=== PATIENT | female | born 1980 | race Two or more races ===

== ENCOUNTER 2017-03-19 11:05 | Emergency (ER) | payer MEDICAID ==
[~2017-03-19] VITALS: Ht 147.3 cm; Wt 83.9 kg
[2017-03-19 11:09] VITALS: BP 151/89
[2017-03-19 11:54] LABS: Basophils # (auto) 0 uL; Eosinophils # (auto) 0.2 uL; Mean Corpuscular Hemoglobin 26.5 pg (28.0-32.0); Mean Corpuscular Hgb Conc. 32.8 g/dL (32.0-36.0); Monocytes # (auto) 0.3 uL; White Blood Cell 8.3 10^3/uL (4.4-10.8)
[2017-03-19 11:55] LABS: Basophils % (auto) 0.5 % (0.0-2.0); Eosinophils % (auto) 2.6 % (0.0-7.0); Hematocrit 39.8 % (36.0-46.0); Hemoglobin 13.1 g/dL (12.2-16.2); Lymphocytes % (auto) 23.6 % (10.0-50.0); Monocytes % (auto) 3.9 % (0.0-12.0); Neutrophils # (auto) 5.8 uL; Neutrophils % (auto) 69.4 % (37.0-80.0); Platelet Count (auto) 308 10^3/uL (140-450); Red Blood Cells 4.92 10^6/uL (4.0-5.20); Red Cell Distribution Width 15.3 % (11.8-14.3)
[2017-03-19 12:10] LABS: Urine Bacteria FEW /hpf (None Seen); Urine Blood 1+ /uL (Negative); Urine Specific Gravity 1.023 (1.001-1.035); Urine WBC 1 /hpf (0 - 5)
[2017-03-19 12:18] LABS: Albumin 4.4 g/dL (3.4-5.0); BUN/Creatinine Ratio 16.4; Bilirubin, Total 1.4 mg/dL (0.2-1.0); Calcium 9.2 mg/dL (8.5-10.1); Potassium 4.1 mmol/L (3.5-5.1); Total Protein 8.3 g/dL (6.4-8.2)
== END 2017-03-20 01:30 | disposition left against medical advice (07) ==
LOC: ER 11:05
DX: R16.0 Hepatomegaly, not elsewhere classified (principal); D36.7 Benign neoplasm of other specified sites; R11.0 Nausea
CPT/HCPCS: 36415; 74176; 80053; 81001; 81025; 82150; 83690; 85025

== ENCOUNTER → 2019-08-13 | Emergency (ER) | payer MEDICAID ==
[~2019-08-13] VITALS: Ht 149.9 cm; Wt 81.6 kg
[~2019-08-13] MED LIST: ALUM & MAG HYDROX-SIMETH LIQ(MAALOX) 30 ML PO ONE; LIDOCAINE VISCOUS 2% 15ML UD PO ONE
[2019-08-13 20:08] VITALS: BP 152/101
[2019-08-13 20:37] LABS: Urine Bacteria NONE SEEN /hpf (None Seen); Urine Blood 3+ /uL (Negative); Urine Mucus FEW (None Seen); Urine Specific Gravity 1.026 (1.001-1.035); Urine WBC <1 /hpf (0 - 5)
[2019-08-13 22:20] LABS: Basophils % (auto) 0.7 % (0.0-2.0); Eosinophils # (auto) 0.2 10 ^3/uL (0-0.8); Eosinophils % (auto) 2.7 % (0.0-7.0); Lymphocytes # (auto) 2.4 10 ^3/uL (0.4-5.4); White Blood Cell 7.4 10^3/uL (4.4-10.8)
[2019-08-13 22:22] LABS: Basophils # (auto) 0.1 10 ^3/uL (0-0.2); Hematocrit 32.8 % (36.0-46.0); Lymphocytes % (auto) 31.8 % (10.0-50.0); Mean Corpuscular Hemoglobin 20.3 pg (28.0-32.0); Mean Corpuscular Hgb Conc. 30.5 g/dL (32.0-36.0); Mean Corpuscular Volume 66.4 fL (80.0-100.0); Monocytes # (auto) 0.3 10 ^3/uL (0-1.3); Monocytes % (auto) 4.6 % (0.0-12.0); Neutrophils # (auto) 4.5 10 ^3/uL (1.6-8.6); Neutrophils % (auto) 60.2 % (37.0-80.0); Platelet Count (auto) 374 10^3/uL (140-450); Red Blood Cells 4.93 10^6/uL (4.0-5.20); Red Cell Distribution Width 18.8 % (11.8-14.3)
[2019-08-13 22:38] LABS: Albumin 3.8 g/dL (3.4-5.0); Amylase 53 U/L (25-115); Anion Gap 8 (5-15); Blood Urea Nitrogen 7 mg/dL (7-18); Calcium 8.6 mg/dL (8.5-10.1); Carbon Dioxide 26 mmol/L (21-32); Chloride 102 mmol/L (98-107); Glucose 233 mg/dL (74-106); Lipase 260 U/L (73-393); Potassium 4.1 mmol/L (3.5-5.1); Sodium 136 mmol/L (136-145)
[2019-08-13 22:45] LABS: Alanine Aminotransferase 36 U/L (13-56); Alkaline Phosphatase 131 U/L (45-117); Aspartate Aminotransferase 25 U/L (15-37); BUN/Creatinine Ratio 10.1; Bilirubin, Total 0.7 mg/dL (0.2-1.0); GFR African American 121 mL/min; GFR Non-African American 100 mL/min; Total Protein 7.9 g/dL (6.4-8.2)
== END | disposition home or self-care (01) ==
LOC: ER 19:24
DX: K29.70 Gastritis, unspecified, without bleeding (principal); D64.9 Anemia, unspecified; E11.65 Type 2 diabetes mellitus with hyperglycemia; R03.0 Elevated blood-pressure reading, without diagnosis of hypertension
CPT/HCPCS: 36415; 80053; 81001; 82150; 83036; 83690; 84484; 85025

== ENCOUNTER 2020-05-26 07:28 | Emergency (ER) | payer MEDICAID ==
[~2020-05-26] VITALS: Ht 147.3 cm; Wt 81.6 kg
[2020-05-26 07:54] LABS: Hemoglobin 7.9 g/dL (12.2-16.2); White Blood Cell 6.3 10^3/uL (4.4-10.8)
[2020-05-26] MEDS ORDERED: SODIUM CHLORIDE 0.9% 1,000 ML IV ONE (08:00)
[2020-05-26 08:01] LABS: Urine WBC None Seen /hpf (0 - 5)
[2020-05-26 08:11] LABS: Hematocrit 26.8 % (36.0-46.0); Mean Corpuscular Hemoglobin 18.1 pg (28.0-32.0); Mean Corpuscular Hgb Conc. 29.5 g/dL (32.0-36.0); Mean Corpuscular Volume 61.3 fL (80.0-100.0); Platelet Count (auto) 417 10^3/uL (140-450); Red Blood Cells 4.37 10^6/uL (4.0-5.20); Red Cell Distribution Width 19.6 % (11.8-14.3)
[2020-05-26 08:15] LABS: Band Neutrophils % (manual) 0; Basophils % (manual) 0 (0.0-2.0); Blast Cells 0; Lipase 152 U/L (73-393); Metamyelocytes % 0; Myelocytes % 0; Promyelocytes % 0; Reactive Lymphocytes 0
[2020-05-26] MEDS ORDERED: ONDANSETRON HCL 4 MG/2 ML VIAL IV ONE (08:15)
[2020-05-26] MEDS ORDERED: MORPHINE SULFATE 4 MG/ML SYR/VIAL IV ONE (08:15)
[2020-05-26 08:16] LABS: Albumin 4.2 g/dL (3.4-5.0); Calcium 8.4 mg/dL (8.5-10.1); Potassium 4.3 mmol/L (3.5-5.1)
[2020-05-26 08:18] LABS: Urine Bacteria FEW /hpf (None Seen); Urine Blood Negative /uL (Negative); Urine Mucus MODERATE (None Seen); Urine Specific Gravity 1.021 (1.001-1.035)
[2020-05-26 08:19] LABS: BUN/Creatinine Ratio 18.5; Bilirubin, Total 1.1 mg/dL (0.2-1.0); Total Protein 7.7 g/dL (6.4-8.2)
[2020-05-26 08:38] LABS: Eosinophils % (manual) 2 (0-7); Lymphocytes % (manual) 28 (10.0-50.0); Monocytes % (manual) 5 (0-12)
[2020-05-26 10:51] VITALS: BP 152/106
== END 2020-05-26 11:14 | disposition home or self-care (01) ==
LOC: ER 07:28
DX: D64.9 Anemia, unspecified (principal); E11.65 Type 2 diabetes mellitus with hyperglycemia; Z20.822 Contact with and (suspected) exposure to COVID-19
CPT/HCPCS: 36415; 71045; 74176; 80053; 81001; 83690; 84484; 85007; 85027; 87426; 96361; 96374; 96375; 99285; J2270; J2405; J7030

== ENCOUNTER 2020-05-29 17:59 | Inpatient (IN) | payer MEDICAID ==
[~2020-05-29] VITALS: Ht 147.3 cm; Wt 77.8 kg
[2020-05-29 18:25] LABS: Eosinophils # (auto) 0.2 10 ^3/uL (0-0.8); Mean Corpuscular Hemoglobin 18.1 pg (28.0-32.0); Monocytes # (auto) 0.5 10 ^3/uL (0-1.3); Nucleated Red Blood Cells % 0.1 %
[2020-05-29 18:28] LABS: Basophils # (auto) 0.1 10 ^3/uL (0-0.2); Basophils % (auto) 1.1 % (0.0-2.0); Eosinophils % (auto) 2.7 % (0.0-7.0); Hematocrit 27.7 % (36.0-46.0); Hemoglobin 8.2 g/dL (12.2-16.2); Lymphocytes % (auto) 27.5 % (10.0-50.0); Mean Corpuscular Hgb Conc. 29.8 g/dL (32.0-36.0); Mean Corpuscular Volume 60.7 fL (80.0-100.0); Monocytes % (auto) 7.4 % (0.0-12.0); Neutrophils # (auto) 4.4 10 ^3/uL (1.6-8.6); Neutrophils % (auto) 61.3 % (37.0-80.0); Platelet Count (auto) 398 10^3/uL (140-450); Red Blood Cells 4.56 10^6/uL (4.0-5.20); Red Cell Distribution Width 19.6 % (11.8-14.3); White Blood Cell 7.2 10^3/uL (4.4-10.8)
[2020-05-29 18:48] LABS: Albumin 4.4 g/dL (3.4-5.0); BUN/Creatinine Ratio 14.3; Calcium 8.9 mg/dL (8.5-10.1); Magnesium 2.1 mg/dL (1.6-2.6); Potassium 3.7 mmol/L (3.5-5.1)
[2020-05-29 18:51] LABS: Total Protein 7.9 g/dL (6.4-8.2)
[2020-05-29] MEDS ORDERED: ONDANSETRON HCL 4 MG/2 ML VIAL IV ONE (21:00)
[2020-05-29] MEDS ORDERED: MORPHINE SULF INJ 2 MG/ML SYRINGE 1ML IV ONE (21:00)
[2020-05-29] MEDS ORDERED: SODIUM CHLORIDE 0.9% 1,000 ML IV ONE (21:00)
[2020-05-29] MEDS ORDERED: METOCLOPRAMIDE HCL 5MG/ml INJ 2ml VIAL IV PRN (22:00)
[2020-05-29] MEDS ORDERED: NITROGLYCERIN 0.4 MG SL TAB SL PRN (22:00)
[2020-05-29] MEDS: SOD CHL 0.45% 1,000 ML IV SCH (22:00)
[2020-05-29] MEDS ORDERED: DEXTROSE (50%) 50ML SYRG IV PRN (22:00)
[2020-05-29] MEDS ORDERED: HYDROcodone-ACET 5/325MG TAB PO PRN (22:00)
[2020-05-29] MEDS ORDERED: MORPHINE SULF INJ 2 MG/ML SYRINGE 1ML IV PRN (22:00)
[2020-05-29] MEDS ORDERED: ACETAMINOPHEN 325 MG TAB PO PRN (22:00)
[2020-05-29] MEDS: InsuLIN REG 1unit/0.01ml Soln (100units/ml) SC SCH (22:00)
[2020-05-29] MEDS ORDERED: MORPHINE SULFATE 4 MG/ML SYR/VIAL IV PRN (22:00)
[2020-05-29] MEDS ORDERED: ONDANSETRON HCL 4 MG/2 ML VIAL IV PRN (22:00)
[2020-05-29] MEDS ORDERED: hydrALAZINE HCL 20 MG/ML VL IV PRN (22:15)
[2020-05-29] MEDS: ACCU-CHEK COMFORT CURVE STRIP VI SCH (23:29)
[2020-05-30] MEDS ORDERED: diphenhdrAMINE HCL 50 MG/1 ML VL IV ONE (03:15)
[2020-05-30] MEDS: ACCU-CHEK COMFORT CURVE STRIP VI SCH ×4 (06:34→22:03)
[2020-05-30] MEDS: InsuLIN REG 1unit/0.01ml Soln (100units/ml) SC SCH ×4 (06:36→22:00)
[2020-05-30 07:22] LABS: Eosinophils # (auto) 0.2 10 ^3/uL (0-0.8); Lymphocytes # (auto) 2.4 10 ^3/uL (0.4-5.4); Monocytes # (auto) 0.4 10 ^3/uL (0-1.3); Neutrophils # (auto) 3.1 10 ^3/uL (1.6-8.6); White Blood Cell 6.1 10^3/uL (4.4-10.8)
[2020-05-30 07:24] LABS: Basophils # (auto) 0.1 10 ^3/uL (0-0.2); Basophils % (auto) 0.8 % (0.0-2.0); Eosinophils % (auto) 2.6 % (0.0-7.0); Hematocrit 26.5 % (36.0-46.0); Hemoglobin 7.8 g/dL (12.2-16.2); Lymphocytes % (auto) 39.7 % (10.0-50.0); Mean Corpuscular Hemoglobin 17.7 pg (28.0-32.0); Mean Corpuscular Hgb Conc. 29.3 g/dL (32.0-36.0); Mean Corpuscular Volume 60.6 fL (80.0-100.0); Monocytes % (auto) 6.6 % (0.0-12.0); Neutrophils % (auto) 50.3 % (37.0-80.0); Nucleated Red Blood Cells % 0.2 %; Platelet Count (auto) 364 10^3/uL (140-450); Red Blood Cells 4.37 10^6/uL (4.0-5.20); Red Cell Distribution Width 19.2 % (11.8-14.3)
[2020-05-30 07:41] LABS: Albumin 3.9 g/dL (3.4-5.0); BUN/Creatinine Ratio 16.4; Calcium 8.5 mg/dL (8.5-10.1); Potassium 4.1 mmol/L (3.5-5.1)
[2020-05-30 07:43] LABS: Bilirubin, Total 0.9 mg/dL (0.2-1.0); Total Protein 7.3 g/dL (6.4-8.2)
[2020-05-30 07:44] LABS: % Iron Saturation 2.4 % (15-50)
[2020-05-30] MEDS: PANTOPRAZOLE 40 MG/10 ML VIAL INJ IV SCH (10:04)
[2020-05-30] MEDS: SOD CHL 0.45% 1,000 ML IV SCH (11:21)
[2020-05-30 11:33] LABS: Folate (Folic Acid) 19.89 ng/mL (5.38-24)
[2020-05-30 16:48] VITALS: BP 153/105
[2020-05-30] MEDS ORDERED: SOD CHL 0.45% 1,000 ML IV SCH (17:00)
[2020-05-30] MEDS: D5W/SOD CHLO 0.9% 1,000 ML IV SCH (19:30)
[2020-05-30 21:35] LABS: INR 1.77 (0.9-1.15); Partial Thromboplastin Time 33.7 sec (23.0-31.2)
[2020-05-30 22:00] VITALS: BP 138/94
[2020-05-30 23:46] LABS: Urine WBC None Seen /hpf (0 - 5)
[2020-05-30 23:54] LABS: Urine Bacteria FEW /hpf (None Seen); Urine Blood Negative /uL (Negative); Urine Mucus FEW (None Seen); Urine Specific Gravity 1.014 (1.001-1.035)
[2020-05-31] MEDS: diphenhdrAMINE HCL 50 MG/1 ML VL IV PRN (00:59)
[2020-05-31] MEDS: D5W/SOD CHLO 0.9% 1,000 ML IV SCH ×3 (03:30→23:23)
[2020-05-31 05:00] VITALS: BP 139/99
[2020-05-31 05:41] LABS: Eosinophils # (auto) 0.2 10 ^3/uL (0-0.8); Monocytes # (auto) 0.4 10 ^3/uL (0-1.3); Neutrophils # (auto) 3.3 10 ^3/uL (1.6-8.6)
[2020-05-31 05:45] LABS: Basophils # (auto) 0.1 10 ^3/uL (0-0.2); Eosinophils % (auto) 3.2 % (0.0-7.0); Hemoglobin 8.1 g/dL (12.2-16.2); Lymphocytes # (auto) 1.8 10 ^3/uL (0.4-5.4); Lymphocytes % (auto) 31.3 % (10.0-50.0); Mean Corpuscular Hemoglobin 18.1 pg (28.0-32.0); Mean Corpuscular Hgb Conc. 30.1 g/dL (32.0-36.0); Mean Corpuscular Volume 60.1 fL (80.0-100.0); Monocytes % (auto) 6.5 % (0.0-12.0); Nucleated Red Blood Cells % 0.2 %; Platelet Count (auto) 365 10^3/uL (140-450); Red Cell Distribution Width 19.5 % (11.8-14.3); White Blood Cell 5.7 10^3/uL (4.4-10.8)
[2020-05-31 06:05] LABS: Potassium 4.6 mmol/L (3.5-5.1)
[2020-05-31 06:14] LABS: BUN/Creatinine Ratio 15.5; Calcium 8.7 mg/dL (8.5-10.1); Magnesium 2.2 mg/dL (1.6-2.6)
[2020-05-31] MEDS: InsuLIN REG 1unit/0.01ml Soln (100units/ml) SC SCH ×4 (06:14→21:15)
[2020-05-31] MEDS: ACCU-CHEK COMFORT CURVE STRIP VI SCH ×4 (06:14→21:15)
[2020-05-31 08:00] VITALS: BP 147/90
[2020-05-31 08:30] VITALS: BP 147/90
[2020-05-31] MEDS: PANTOPRAZOLE 40 MG/10 ML VIAL INJ IV SCH (09:39)
[2020-05-31 11:30] LABS: INR 1.08 (0.9-1.15); Partial Thromboplastin Time 23.4 sec (23.0-31.2)
[2020-05-31 12:30] VITALS: BP 137/96
[2020-05-31] MEDS ORDERED: IRON SUCROSE COMPLEX 200 MG in SODIUM CHL 0.9% 100 ML IV SCH (13:15)
[2020-05-31 16:42] VITALS: BP 141/92
[2020-05-31] MEDS: SODIUM FERR GLUC 62.5MG/5ML 125 MG in SODIUM CHL 0.9% 100 ML IV SCH (17:00)
[2020-06-01] MEDS ORDERED: SODIUM CHLORIDE 0.9% 500 ML IV ONE (02:00)
[2020-06-01 05:13] VITALS: BP 139/90
[2020-06-01] MEDS: InsuLIN REG 1unit/0.01ml Soln (100units/ml) SC SCH ×4 (05:40→22:25)
[2020-06-01] MEDS: ACCU-CHEK COMFORT CURVE STRIP VI SCH ×4 (05:40→22:05)
[2020-06-01] MEDS ORDERED: ceFAZolin 1GM/50ML 50 ML IV ONE (07:45)
[2020-06-01 08:00] VITALS: BP 150/89
[2020-06-01] MEDS ORDERED: BUPIVACAINE 0.25% INJ 50ML VIAL ONE (08:23)
[2020-06-01] MEDS ORDERED: POVIDONE IODINE 10 % TOPICAL OINT 30GM TOP ONE (08:23)
[2020-06-01] MEDS ORDERED: MIDAZOLAM HCL 1MG/1ML-2 ML VIAL ONE (08:29)
[2020-06-01] MEDS ORDERED: ROCURONIUM 10MG/ML 10ML VIAL IV ONE (08:29)
[2020-06-01] MEDS ORDERED: HYDROmorphone HCL 2 MG/ML VL ONE (08:29)
[2020-06-01] MEDS ORDERED: METOCLOPRAMIDE HCL 5MG/ml INJ 2ml VIAL IV ONE (08:31)
[2020-06-01] MEDS ORDERED: PROPOFOL 10 MG/ML 20 ML IV ONE (08:31)
[2020-06-01] MEDS ORDERED: DexAMETHasone SOD PHOS 10MG/1ML VIAL INJ ONE (08:56)
[2020-06-01] MEDS ORDERED: NEOSTIGMINE 1 MG/ML INJ (10mg/10ML VIAL) ONE (08:56)
[2020-06-01] MEDS ORDERED: ONDANSETRON HCL 4 MG/2 ML VIAL ONE (08:56)
[2020-06-01] MEDS ORDERED: GLYCOPYRROLATE 0.2 MG/ML 1ML VIAL ONE (08:56)
[2020-06-01 09:00] VITALS: BP 150/89
[2020-06-01] MEDS: D5W/SOD CHLO 0.9% 1,000 ML IV SCH ×2 (09:30→19:24)
[2020-06-01] MEDS ORDERED: HYDROmorphone HCL 2 MG/ML VL IV PRN ×3 (10:00→10:15)
[2020-06-01] MEDS ORDERED: ONDANSETRON HCL 4 MG/2 ML VIAL IV PRN (10:15)
[2020-06-01] MEDS: D5W/SOD CHL 0.45%/KCL 20MEQ 1,000 ML IV SCH (12:20)
[2020-06-01] MEDS: PANTOPRAZOLE 40 MG/10 ML VIAL INJ IV SCH (12:25)
[2020-06-01] MEDS: SODIUM FERR GLUC 62.5MG/5ML 125 MG in SODIUM CHL 0.9% 100 ML IV SCH (12:36)
[2020-06-01 13:00] VITALS: BP 122/84
[2020-06-01 13:48] LABS: Hematocrit 27.5 % (36.0-46.0); Hemoglobin 8.1 g/dL (12.2-16.2); Mean Corpuscular Hemoglobin 17.7 pg (28.0-32.0); Mean Corpuscular Hgb Conc. 29.3 g/dL (32.0-36.0); Mean Corpuscular Volume 60.4 fL (80.0-100.0); Platelet Count (auto) 330 10^3/uL (140-450); Red Blood Cells 4.55 10^6/uL (4.0-5.20); Red Cell Distribution Width 19.2 % (11.8-14.3); White Blood Cell 9.1 10^3/uL (4.4-10.8)
[2020-06-01 13:52] LABS: Basophils % (manual) 0 (0.0-2.0); Blast Cells 0; Eosinophils % (manual) 0 (0-7); Metamyelocytes % 0; Monocytes % (manual) 0 (0-12); Myelocytes % 0; Promyelocytes % 0; Reactive Lymphocytes 0
[2020-06-01 14:11] LABS: Band Neutrophils % (manual) 1; Lymphocytes % (manual) 5 (10.0-50.0)
[2020-06-01 16:40] VITALS: BP 142/90
[2020-06-01] MEDS: diphenhdrAMINE HCL 50 MG/1 ML VL IV PRN (21:14)
[2020-06-01 22:00] VITALS: BP 143/89
[2020-06-02] MEDS: D5W/SOD CHL 0.45%/KCL 20MEQ 1,000 ML IV SCH ×2 (01:51→05:27)
[2020-06-02 05:00] VITALS: BP 139/93
[2020-06-02] MEDS: D5W/SOD CHLO 0.9% 1,000 ML IV SCH (05:26)
[2020-06-02] MEDS: InsuLIN REG 1unit/0.01ml Soln (100units/ml) SC SCH ×2 (06:01→11:32)
[2020-06-02] MEDS: ACCU-CHEK COMFORT CURVE STRIP VI SCH ×2 (06:01→11:30)
[2020-06-02] MEDS ORDERED: cefTRIAXone 1GM/50ML D5W 50 ML IV SCH (09:00)
[2020-06-02 09:06] VITALS: BP 149/103
[2020-06-02] MEDS: PANTOPRAZOLE 40 MG/10 ML VIAL INJ IV SCH (11:26)
[2020-06-02] MEDS: SODIUM FERR GLUC 62.5MG/5ML 125 MG in SODIUM CHL 0.9% 100 ML IV SCH (12:35)
[2020-06-02 13:00] VITALS: BP 150/95
== END 2020-06-02 15:09 | disposition home or self-care (01) | DRG 263 ==
LOC: ER 17:59 → TELE 21:47 → TELE-WESTW 05-30 13:23
PROVIDERS: ADMIT Nurse Practitioner Family; ATTEND Internal Medicine
PROC: 0FT44ZZ Resection of Gallbladder, Percutaneous Endoscopic Approach (ICD-10-PCS; principal; 2020-06-01 08:31)
DX: K80.12 Calculus of gallbladder with acute and chronic cholecystitis without obstruction (principal); E11.65 Type 2 diabetes mellitus with hyperglycemia; E66.01 Morbid (severe) obesity due to excess calories; I10 Essential (primary) hypertension; D50.9 Iron deficiency anemia, unspecified; R00.0 Tachycardia, unspecified; Z20.822 Contact with and (suspected) exposure to COVID-19; Z68.35 Body mass index [BMI] 35.0-35.9, adult; Z82.49 Family history of ischemic heart disease and other diseases of the circulatory system; Z83.3 Family history of diabetes mellitus; Z98.51 Tubal ligation status
CPT/HCPCS: 36415; 76705; 78226; 80048; 80053; 81001; 81025; 82150; 82247; 82607; 82746; 82962; 83540; 83550; 83690; 83735; 85007; 85025; 85027; 85610; 85730; 86850; 86900; 86901; 87426; 96361; 96374; 96375; C9113; G0378; J0690; J0696; J1100; J1815; J2250; J2405; J2704; J3490; J7042

== ENCOUNTER 2020-08-01 17:34 | Inpatient (IN) | payer MEDICAID ==
[~2020-08-01] VITALS: Ht 147.3 cm; Wt 77.1 kg
[2020-08-01 18:05] LABS: Urine Bacteria NONE SEEN /hpf (None Seen); Urine Blood Negative /uL (Negative); Urine Hyaline Cast FEW /lpf (0 - 2); Urine Specific Gravity 1.019 (1.001-1.035); Urine WBC 2 /hpf (0 - 5)
[2020-08-01 18:20] LABS: Basophils # (auto) 0 10 ^3/uL (0-0.2); Eosinophils # (auto) 0.1 10 ^3/uL (0-0.8); Lymphocytes # (auto) 2.2 10 ^3/uL (0.4-5.4); Mean Corpuscular Hemoglobin 19.7 pg (28.0-32.0); Nucleated Red Blood Cells % 0.3 %
[2020-08-01 18:21] LABS: Basophils % (auto) 0.7 % (0.0-2.0); Lymphocytes % (auto) 32.1 % (10.0-50.0); Mean Corpuscular Hgb Conc. 30.1 g/dL (32.0-36.0); Mean Corpuscular Volume 65.4 fL (80.0-100.0); Monocytes # (auto) 0.6 10 ^3/uL (0-1.3); Monocytes % (auto) 8.8 % (0.0-12.0); Neutrophils # (auto) 3.9 10 ^3/uL (1.6-8.6); Neutrophils % (auto) 57.4 % (37.0-80.0); Platelet Count (auto) 314 10^3/uL (140-450); Red Blood Cells 4.58 10^6/uL (4.0-5.20); White Blood Cell 6.8 10^3/uL (4.4-10.8)
[2020-08-01 18:38] LABS: Albumin 3.8 g/dL (3.4-5.0); BUN/Creatinine Ratio 19.1; Calcium 8.1 mg/dL (8.5-10.1); Potassium 4.9 mmol/L (3.5-5.1)
[2020-08-01 18:41] LABS: Bilirubin, Total 1.4 mg/dL (0.2-1.0); Total Protein 6.9 g/dL (6.4-8.2)
[2020-08-01 18:44] LABS: Magnesium 2.1 mg/dL (1.6-2.6)
[2020-08-01 18:58] LABS: Red Cell Distribution Width 21.8 % (11.8-14.3)
[2020-08-01] MEDS ORDERED: ONDANSETRON HCL 4 MG/2 ML VIAL IV PRN (21:30)
[2020-08-01] MEDS ORDERED: MORPHINE SULF INJ 2 MG/ML SYRINGE 1ML IV PRN (21:30)
[2020-08-01] MEDS ORDERED: TEMAZEPAM 15 MG CAP PO PRN (21:30)
[2020-08-01] MEDS ORDERED: NITROGLYCERIN 0.4 MG SL TAB SL PRN (21:30)
[2020-08-01] MEDS: FAMOTIDINE 20 MG TAB PO SCH (22:27)
[2020-08-01] MEDS: PROPRANOLOL HCL 20 MG TAB PO SCH (22:27)
[2020-08-01 22:38] LABS: INR 1.12 (0.9-1.15); Partial Thromboplastin Time 23.8 sec (23.0-31.2)
[2020-08-02 05:00] VITALS: BP 111/77
[2020-08-02 07:51] VITALS: BP 112/87
[2020-08-02] MEDS ORDERED: FERROUS SULFATE 325mg EC TAB PO SCH (08:00)
[2020-08-02] MEDS: PROPRANOLOL HCL 20 MG TAB PO SCH (09:40)
[2020-08-02] MEDS: FAMOTIDINE 20 MG TAB PO SCH (09:41)
[2020-08-02] MEDS ORDERED: LACTULOSE 20Gm/30ML SOLN PO SCH (10:00)
[2020-08-02 10:15] LABS: Basophils # (auto) 0.1 10 ^3/uL (0-0.2); Eosinophils # (auto) 0.1 10 ^3/uL (0-0.8); Hemoglobin 9.6 g/dL (12.2-16.2); Mean Corpuscular Hgb Conc. 29.4 g/dL (32.0-36.0)
[2020-08-02 10:17] LABS: Hematocrit 32.5 % (36.0-46.0); Lymphocytes # (auto) 2.2 10 ^3/uL (0.4-5.4); Lymphocytes % (auto) 25.4 % (10.0-50.0); Mean Corpuscular Hemoglobin 19.3 pg (28.0-32.0); Mean Corpuscular Volume 65.6 fL (80.0-100.0); Monocytes # (auto) 0.6 10 ^3/uL (0-1.3); Monocytes % (auto) 6.5 % (0.0-12.0); Neutrophils # (auto) 5.7 10 ^3/uL (1.6-8.6); Neutrophils % (auto) 66.1 % (37.0-80.0); Nucleated Red Blood Cells % 0.5 %; Platelet Count (auto) 379 10^3/uL (140-450); Red Blood Cells 4.96 10^6/uL (4.0-5.20); Red Cell Distribution Width 22.2 % (11.8-14.3); White Blood Cell 8.6 10^3/uL (4.4-10.8)
[2020-08-02 10:29] LABS: Albumin 3.8 g/dL (3.4-5.0); Calcium 8.1 mg/dL (8.5-10.1)
[2020-08-02 10:34] LABS: BUN/Creatinine Ratio 21.8; Bilirubin, Total 1.8 mg/dL (0.2-1.0); Total Protein 6.9 g/dL (6.4-8.2)
[2020-08-02 10:48] LABS: Potassium 5.9 mmol/L (3.5-5.1)
[2020-08-02 12:00] VITALS: BP 123/87
[2020-08-02] MEDS ORDERED: DICYCLOMINE HCL 10 MG CAP PO ONE (12:00)
[2020-08-02] MEDS ORDERED: FLEET ENEMA(ADULT) 135 ML PR ONE (12:00)
[2020-08-02] MEDS ORDERED: DOCUSATE SOD 100 MG CAP PO SCH (12:25)
[2020-08-02 14:19] LABS: BUN/Creatinine Ratio 25.4; Calcium 7.9 mg/dL (8.5-10.1)
[2020-08-02] MEDS ORDERED: DOCU100C10 PO (15:02)
[2020-08-02] MEDS ORDERED: FER325T PO (15:02)
[2020-08-02 16:51] LABS: % Iron Saturation 4.8 % (15-50)
[2020-08-02 16:58] VITALS: BP 103/78
[2020-08-02] MEDS ORDERED: DICYCLOMINE HCL 10 MG CAP PO SCH (22:00)
[2020-08-04 12:54] LABS: Hepatitis A Ab IgM Negative
[2020-08-04 12:58] LABS: Hepatitis B Core IgM Negative
[2020-08-04 13:02] LABS: Hepatitis B Surface Antigen Negative (Negative)
[2020-08-04 13:13] LABS: Hepatitis C Antibody Negative (Negative)
== END 2020-08-02 18:11 | disposition home or self-care (01) ==
LOC: ER 17:34 → TELE 22:24 → TELE-EAST 23:13
PROVIDERS: ADMIT Nurse Practitioner; ATTEND Internal Medicine
DX: K74.60 Unspecified cirrhosis of liver (principal); E72.4 Disorders of ornithine metabolism; R18.8 Other ascites; E11.9 Type 2 diabetes mellitus without complications; R14.0 Abdominal distension (gaseous); Z20.822 Contact with and (suspected) exposure to COVID-19; K59.00 Constipation, unspecified; Z82.49 Family history of ischemic heart disease and other diseases of the circulatory system; Z90.49 Acquired absence of other specified parts of digestive tract; Z98.891 History of uterine scar from previous surgery; Z98.51 Tubal ligation status
CPT/HCPCS: 36415; 74176; 76700; 80048; 80053; 80074; 81001; 82140; 83540; 83550; 83605; 83690; 83735; 84702; 85025; 85610; 85730; 87426; 93005; G0378; J2405

== ENCOUNTER 2020-08-29 04:44 | Emergency (ER) | payer MEDICAID ==
[~2020-08-29] VITALS: Ht 147.3 cm; Wt 79.4 kg
[~2020-08-29 04:44] MED LIST changes: -ALUM & MAG HYDROX-SIMETH LIQ(MAALOX) 30 ML PO ONE; +DOCU100C10 PO; +FER325T PO; -LIDOCAINE VISCOUS 2% 15ML UD PO ONE
[2020-08-29 05:21] LABS: Urine Bacteria FEW /hpf (None Seen); Urine Blood 2+ /uL (Negative); Urine Specific Gravity 1.011 (1.001-1.035); Urine WBC 1 /hpf (0 - 5)
[2020-08-29 06:35] LABS: Eosinophils # (auto) 0.1 10 ^3/uL (0-0.8); Hemoglobin 10.3 g/dL (12.2-16.2); Monocytes # (auto) 0.6 10 ^3/uL (0-1.3)
[2020-08-29 06:37] LABS: Basophils # (auto) 0.1 10 ^3/uL (0-0.2); Basophils % (auto) 0.9 % (0.0-2.0); Eosinophils % (auto) 1.2 % (0.0-7.0); Hematocrit 33.8 % (36.0-46.0); Lymphocytes # (auto) 1.9 10 ^3/uL (0.4-5.4); Lymphocytes % (auto) 20.8 % (10.0-50.0); Mean Corpuscular Hemoglobin 19.5 pg (28.0-32.0); Mean Corpuscular Hgb Conc. 30.5 g/dL (32.0-36.0); Mean Corpuscular Volume 64.2 fL (80.0-100.0); Monocytes % (auto) 6.2 % (0.0-12.0); Neutrophils # (auto) 6.4 10 ^3/uL (1.6-8.6); Neutrophils % (auto) 70.9 % (37.0-80.0); Nucleated Red Blood Cells % 0.1 %; Platelet Count (auto) 365 10^3/uL (140-450); Red Blood Cells 5.27 10^6/uL (4.0-5.20)
[2020-08-29 06:40] LABS: Red Cell Distribution Width 21.1 % (11.8-14.3)
[2020-08-29] MEDS ORDERED: ONDANSETRON HCL 4 MG/2 ML VIAL IV ONE (06:45)
[2020-08-29] MEDS ORDERED: LORazepam 0.5 MG TAB PO ONE (06:45)
[2020-08-29] MEDS ORDERED: MORPHINE SULFATE 4 MG/ML SYR/VIAL IV ONE (06:45)
[2020-08-29] MEDS ORDERED: SODIUM CHLORIDE 0.9% 1,000 ML IV ONE (06:45)
[2020-08-29 06:52] LABS: Albumin 4.2 g/dL (3.4-5.0); Calcium 8.3 mg/dL (8.5-10.1); Potassium 4.2 mmol/L (3.5-5.1)
[2020-08-29 06:56] LABS: BUN/Creatinine Ratio 21.2; Bilirubin, Total 1.6 mg/dL (0.2-1.0); Total Protein 7.3 g/dL (6.4-8.2)
[2020-08-29 16:09] VITALS: BP 132/93
== END 2020-08-29 16:33 | disposition home or self-care (01) ==
LOC: ER 04:44
DX: D27.1 Benign neoplasm of left ovary (principal); R10.11 Right upper quadrant pain; R11.2 Nausea with vomiting, unspecified; E11.9 Type 2 diabetes mellitus without complications; Z90.49 Acquired absence of other specified parts of digestive tract; Z79.899 Other long term (current) drug therapy; Z98.51 Tubal ligation status; Z98.890 Other specified postprocedural states
CPT/HCPCS: 36415; 74176; 76830; 76856; 80053; 81001; 81025; 83690; 85025; 96361; 96374; 96375; 99285; J2270; J2405

== ENCOUNTER 2020-09-11 03:57 | Inpatient (IN) | payer MEDICAID ==
[~2020-09-11] VITALS: Ht 144.8 cm; Wt 79.0 kg
[2020-09-11 06:38] LABS: Basophils # (auto) 0.1 10 ^3/uL (0-0.2); Eosinophils # (auto) 0.2 10 ^3/uL (0-0.8); Eosinophils % (auto) 2.5 % (0.0-7.0); Lymphocytes # (auto) 2.4 10 ^3/uL (0.4-5.4); Monocytes # (auto) 0.6 10 ^3/uL (0-1.3)
[2020-09-11 06:43] LABS: Urine Bacteria FEW /hpf (None Seen); Urine Blood 3+ /uL (Negative); Urine Specific Gravity 1.022 (1.001-1.035); Urine WBC 50 /hpf (0 - 5)
[2020-09-11 06:49] LABS: Basophils % (auto) 1.3 % (0.0-2.0); Hematocrit 32.1 % (36.0-46.0); Hemoglobin 9.8 g/dL (12.2-16.2); Mean Corpuscular Hemoglobin 19.3 pg (28.0-32.0); Mean Corpuscular Hgb Conc. 30.5 g/dL (32.0-36.0); Mean Corpuscular Volume 63.4 fL (80.0-100.0); Monocytes % (auto) 7.3 % (0.0-12.0); Neutrophils % (auto) 59.9 % (37.0-80.0); Nucleated Red Blood Cells % 0.1 %; Red Blood Cells 5.06 10^6/uL (4.0-5.20); White Blood Cell 8.4 10^3/uL (4.4-10.8)
[2020-09-11 06:58] LABS: Albumin 3.7 g/dL (3.4-5.0); Magnesium 2.2 mg/dL (1.6-2.6)
[2020-09-11 07:04] LABS: BUN/Creatinine Ratio 24.7; Bilirubin, Total 1.3 mg/dL (0.2-1.0); Total Protein 6.5 g/dL (6.4-8.2)
[2020-09-11] MEDS ORDERED: cefTRIAXone 1GM/50ML D5W 50 ML IV ONE (08:15)
[2020-09-11] MEDS ORDERED: PANTOPRAZOLE 40 MG/10 ML VIAL INJ IV ONE (08:15)
[2020-09-11] MEDS ORDERED: LABETALOL HCL 5 MG/ML 4ML SYRINGE IV ONE (08:30)
[2020-09-11 08:36] LABS: INR 1.23 (0.9-1.15); Partial Thromboplastin Time 23.9 sec (23.0-31.2)
[2020-09-11] MEDS ORDERED: ONDANSETRON HCL 4 MG/2 ML VIAL IV PRN (09:15)
[2020-09-11] MEDS ORDERED: METOPROLOL TARTRATE 1MG/1ML-5ML VIAL IV PRN (09:15)
[2020-09-11] MEDS ORDERED: NITROGLYCERIN 0.4 MG SL TAB SL PRN (09:15)
[2020-09-11] MEDS ORDERED: MORPHINE SULFATE INJECTION 2 MG/ML SYRG IV PRN (09:15)
[2020-09-11] MEDS: FAMOTIDINE (10MG/ML) 2ML VL IV SCH ×2 (09:52→21:37)
[2020-09-11] MEDS: PIPERACILLIN-TAZOB 3.375GM 100 ML IV SCH ×2 (12:07→18:09)
[2020-09-11 20:00] VITALS: BP 161/102
[2020-09-11 22:00] VITALS: BP 161/102
[2020-09-12] MEDS: PIPERACILLIN-TAZOB 3.375GM 100 ML IV SCH ×4 (00:10→18:01)
[2020-09-12 05:00] VITALS: BP 142/103
[2020-09-12 05:11] LABS: Basophils # (auto) 0.1 10 ^3/uL (0-0.2); Eosinophils # (auto) 0.1 10 ^3/uL (0-0.8); Lymphocytes # (auto) 1.7 10 ^3/uL (0.4-5.4); Monocytes # (auto) 0.6 10 ^3/uL (0-1.3); Neutrophils # (auto) 4.2 10 ^3/uL (1.6-8.6); Red Cell Distribution Width 19.9 % (11.8-14.3); White Blood Cell 6.7 10^3/uL (4.4-10.8)
[2020-09-12 05:13] LABS: Basophils % (auto) 1.8 % (0.0-2.0); Eosinophils % (auto) 1.7 % (0.0-7.0); Hematocrit 30.9 % (36.0-46.0); Hemoglobin 9.5 g/dL (12.2-16.2); Lymphocytes % (auto) 25.6 % (10.0-50.0); Mean Corpuscular Hemoglobin 19.1 pg (28.0-32.0); Mean Corpuscular Hgb Conc. 30.7 g/dL (32.0-36.0); Mean Corpuscular Volume 62.1 fL (80.0-100.0); Monocytes % (auto) 8.8 % (0.0-12.0); Neutrophils % (auto) 62.1 % (37.0-80.0); Nucleated Red Blood Cells % 0.4 %; Red Blood Cells 4.97 10^6/uL (4.0-5.20)
[2020-09-12 05:31] LABS: Potassium 4.5 mmol/L (3.5-5.1)
[2020-09-12 05:39] LABS: Albumin 3.5 g/dL (3.4-5.0); BUN/Creatinine Ratio 18.4; Bilirubin, Total 2.2 mg/dL (0.2-1.0); Calcium 7.9 mg/dL (8.5-10.1); Total Protein 6.1 g/dL (6.4-8.2)
[2020-09-12 08:15] VITALS: BP 145/94
[2020-09-12 09:00] VITALS: BP 145/94
[2020-09-12] MEDS: FAMOTIDINE (10MG/ML) 2ML VL IV SCH ×2 (09:37→21:36)
[2020-09-12 13:00] VITALS: BP 143/107
[2020-09-12 16:47] VITALS: BP 114/109
[2020-09-12] MEDS: FUROSEMIDE 20 MG/2 ML VIAL IV SCH (18:00)
[2020-09-12 20:15] VITALS: BP 121/84
[2020-09-12] MEDS: traZODone HCL 50 MG TAB PO SCH (21:36)
[2020-09-12] MEDS: POTASSIUM EFFERVESENT TAB 25 MEQ PO SCH (21:36)
[2020-09-13 05:23] VITALS: BP 140/96
[2020-09-13] MEDS: FUROSEMIDE 20 MG/2 ML VIAL IV SCH ×2 (06:28→17:39)
[2020-09-13] MEDS: PIPERACILLIN-TAZOB 3.375GM 100 ML IV SCH ×3 (06:29→11:59)
[2020-09-13 07:29] LABS: Potassium 4.8 mmol/L (3.5-5.1)
[2020-09-13 07:46] LABS: Albumin 3.2 g/dL (3.4-5.0); BUN/Creatinine Ratio 14.4; Bilirubin, Total 2.2 mg/dL (0.2-1.0); Calcium 8.1 mg/dL (8.5-10.1); Total Protein 5.6 g/dL (6.4-8.2)
[2020-09-13 08:00] VITALS: BP 129/93
[2020-09-13] MEDS: POTASSIUM EFFERVESENT TAB 25 MEQ PO SCH (09:00)
[2020-09-13] MEDS: FAMOTIDINE (10MG/ML) 2ML VL IV SCH ×2 (09:01→21:07)
[2020-09-13] MEDS ORDERED: LIDOCAINE VISCOUS 2% 15ML UD ONE (11:17)
[2020-09-13] MEDS ORDERED: diphenhdrAMINE HCL 50 MG/1 ML VL ONE (11:17)
[2020-09-13] MEDS ORDERED: MIDAZOLAM HCL 5 MG/ML-1ML VIAL ONE (11:17)
[2020-09-13] MEDS ORDERED: fentaNYL CITRATE 100 MCG/2 ML VL ONE (11:18)
[2020-09-13] MEDS ORDERED: GADOTERATE MEG 10 MMOL/20ml INJ (0.5MMOL/ml) IV ONE (12:09)
[2020-09-13 13:00] VITALS: BP 131/93
[2020-09-13 17:19] VITALS: BP 141/90
[2020-09-13] MEDS: SUCRALFATE 1 GM/10 ML ORAL SUSP PO SCH ×2 (17:38→21:06)
[2020-09-13] MEDS: NYSTATIN (MOUTH-THROAT) 500,000 UNITS/5 ML SUSP MT SCH ×2 (17:39→21:07)
[2020-09-13] MEDS: traZODone HCL 50 MG TAB PO SCH (21:07)
[2020-09-13 22:00] VITALS: BP 131/90
[2020-09-14 05:00] VITALS: BP 123/92
[2020-09-14] MEDS: NYSTATIN (MOUTH-THROAT) 500,000 UNITS/5 ML SUSP MT SCH ×2 (05:35→14:04)
[2020-09-14] MEDS: SUCRALFATE 1 GM/10 ML ORAL SUSP PO SCH ×3 (05:35→17:00)
[2020-09-14] MEDS: FUROSEMIDE 20 MG/2 ML VIAL IV SCH (05:35)
[2020-09-14 08:58] VITALS: BP 135/96
[2020-09-14] MEDS ORDERED: POTASSIUM EFFERVESENT TAB 25 MEQ PO SCH (10:00)
[2020-09-14] MEDS ORDERED: levoFLOXacin 500 MG TAB PO SCH (10:00)
[2020-09-14] MEDS: FAMOTIDINE (10MG/ML) 2ML VL IV SCH (10:27)
[2020-09-14 13:00] VITALS: BP 133/98
[2020-09-14] MEDS ORDERED: SPIR25TA PO (15:45)
[2020-09-14] MEDS ORDERED: SUCR1SUS5 PO (15:47)
[2020-09-14] MEDS ORDERED: PANT40TA2 PO (15:47)
[2020-09-14 16:21] VITALS: BP 134/78
[2020-09-14 16:48] VITALS: BP 137/91
== END 2020-09-14 17:00 | disposition home or self-care (01) | DRG 241 ==
LOC: ER 03:57 → TELE 09:02 → TELE-WESTW 11:04
PROVIDERS: ADMIT Hospitalist; ATTEND Hospitalist
PROC: 0DB48ZX Excision of Esophagogastric Junction, Via Natural or Artificial Opening Endoscopic, Diagnostic (ICD-10-PCS; 2020-09-13)
PROC: 0DB78ZX Excision of Stomach, Pylorus, Via Natural or Artificial Opening Endoscopic, Diagnostic (ICD-10-PCS; 2020-09-13)
PROC: 0DB98ZX Excision of Duodenum, Via Natural or Artificial Opening Endoscopic, Diagnostic (ICD-10-PCS; principal; 2020-09-13 11:40)
DX: K29.00 Acute gastritis without bleeding (principal); K74.60 Unspecified cirrhosis of liver; K22.10 Ulcer of esophagus without bleeding; D50.9 Iron deficiency anemia, unspecified; E11.9 Type 2 diabetes mellitus without complications; E66.9 Obesity, unspecified; I10 Essential (primary) hypertension; K44.9 Diaphragmatic hernia without obstruction or gangrene; N83.201 Unspecified ovarian cyst, right side; Z82.49 Family history of ischemic heart disease and other diseases of the circulatory system; Z20.822 Contact with and (suspected) exposure to COVID-19; Z68.37 Body mass index [BMI] 37.0-37.9, adult
CPT/HCPCS: 36415; 43239; 71045; 72195; 74176; 74181; 76700; 80053; 81001; 82150; 82378; 82728; 82962; 83516; 83605; 83690; 83735; 84484; 84702; 85025; 85049; 85610; 85730; 86225; 86235; 86300; 86301; 86304; 86850; 86900; 86901; 87081; 87426; 93005; 96365; 96375; C9113; G0378; J0696; J2250; J2405; J2543; J3490

== ENCOUNTER 2024-12-27 21:06 | Emergency (ER) | payer MEDICAID ==
[~2024-12-27] VITALS: Ht 147.3 cm; Wt 73.9 kg
[~2024-12-27 21:06] MED LIST changes: +DOCU-265 PO; -DOCU100C10 PO; +PANT40TA2 PO; +SPIR25TA PO; +SUCR1SUS5 PO
[2024-12-27 22:03] LABS: Hematocrit 30.5 % (36.0-46.0); Hemoglobin 9.3 g/dL (12.2-16.2); Mean Corpuscular Hemoglobin 19.9 pg (28.0-32.0); Mean Corpuscular Volume 65.4 fL (80.0-100.0); Nucleated Red Blood Cells % 0.0 %
[2024-12-27 22:17] LABS: Alanine Aminotransferase 13 U/L (7-40); Albumin 4.5 g/dL (3.2-4.8); Alkaline Phosphatase 110 U/L (46-116); Anion Gap 8 (5-15); BUN/Creatinine Ratio 12.7 (10.0-20.0); Calcium 9.0 mg/dL (8.7-10.4); Carbon Dioxide 26 mmol/L (20-31); Chloride 105 mmol/L (98-107); Potassium 4.2 mmol/L (3.5-5.1); Sodium 139 mmol/L (136-145); Total Protein 7.7 g/dL (5.7-8.2)
[2024-12-27 22:18] LABS: Bilirubin, Total 0.7 mg/dL (0.2-1.0); Blood Urea Nitrogen 8 mg/dL (9-23); Glucose 196 mg/dL (74-106)
[2024-12-27] MEDS ORDERED: METF-372 PO (23:01)
[2024-12-27] MEDS ORDERED: FER325T PO (23:01)
[2024-12-27] MEDS ORDERED: AMLO1TAB22 PO (23:01)
[2024-12-27 23:10] VITALS: BP 168/81; TEMP 98.1
[2024-12-27 23:16] VITALS: PULSE 87; RESP 16; O2SAT 98
[2024-12-27] MEDS: LISINOPRIL 20 MG TAB PO ONE (23:30)
[2024-12-27] MEDS ORDERED: COROSUS EACH EAR (23:37)
[2024-12-27] MEDS ORDERED: GENT0.3S10 EACHEYE (23:37)
[2024-12-27] MEDS ORDERED: AZIT500T66 PO (23:37)
--- NOTE | 2024-12-27 23:56 | ED.PDOC ---
History of Present Illness HPI Comments 44 y/o obese F, with a Hx of DM and HTN, presents with spouse for c/c of headache, right eye and ear pain and drainage, runny nose, and cough. Patient endorses on 2x day history. Upon arrival to ED, patient was found hypertensive at 194/119 amidst endorsed compliance with her HTN medications, with last oral intake being this morning. Denies any further acute symptoms. Chief Complaint: High Blood Pressure Time Seen by MD: 23:10 Reviewed Notes: Nurses Notes, Medications, Allergies Allergies: Coded Allergies: NO KNOWN ALLERGIES (Unverified , 03/19/17) Home Meds Active Scripts Azithromycin (Azithromycin) 500 Mg Tab, 1 TAB PO DAILY for 5 Days, #5 TAB Prov:SOURAV WEI MD 12/27/24 Gentamicin Sulfate (Gentamicin Sulfate) 0.3 % Maria Elena, 1 DROP EACHEYE QID for 5 Days, #5 ML Prov:SOURAV WEI MD 12/27/24 [id number]-[id number]-Kn (Otic) (Cortisporin Otic Susp) [address], 3 DROP EACH EAR TID for 7 Days, #10 ML Prov:SOURAV WEI MD 12/27/24 Metformin Hydrochloride (Metformin Hcl) 1,000 Mg Tab, 1 TAB PO BID, #180 TAB 1 Refill Prov:SOURAV WEI MD 12/27/24 Ferrous Sulfate (FERROUS SULFATE) 325 Mg Tb, 1 TAB PO DAILY for 90 Days, #90 TAB 3 Refills Prov:SOURAV WEI MD 12/27/24 Amlodipine Besylate (Amlodipine Besylate) 5 Mg Tab, 1 TAB PO DAILY, #90 TAB 1 Refill Prov:SOURAV WEI MD 12/27/24 Sucralfate (Carafate) 1 Gm/10 Ml Julieta, 10 ML PO BID, #120 ML 1 Refill Prov:ROBBY RIVERA MD 09/14/20 Pantoprazole Sodium Sesquihydr (Protonix) 40 Mg Tab, 40 MG PO DAILY, #30 TAB Prov:ROBBY RIVERA MD 09/14/20 Spironolactone (Aldactone) 25 Mg Tab, 1 TAB PO DAILY, #30 TAB Prov:ROBBY RIVERA MD 09/14/20 Ferrous Sulfate (Ferrous Sulfate) 325 Mg Tab, 325 MG PO BIDWM, #60 TAB Prov:LUIS ARMANDO DOWLING MD 08/02/20 Docusate Sodium (Docusate Sodium) 100 Mg Cap, 100 MG PO BID PRN MDD Constipation, #40 CAP Prov:LUIS ARMANDO DOWLING MD 08/02/20 Information Source: Patient Mode of Arrival: Ambulatory Severity: Moderate Timing: Days Duration: Since onset Prehospital treatment: None Past Medical History PAST MEDICAL HISTORY: DM, HTN Surgical History: , Tubal Ligation MANNEQUIN MOLDER History: No Pertinent MANNEQUIN MOLDER History Family History Family History: Family hx of heart chip, Family hx of HTN Social History Smoker: Non-Smoker Alcohol: Occasionally Drugs: Denies Drug Use Lives In: Home All Other Systems: Reviewed and Negative (Comprehensive review of systems are negative unless stated in HPI) Physical Exam General Appearance: Mild Distress, Obese HEENT: Normal ENT Inspection, Pharynx Normal, TMs Normal Neck: Full Range of Motion, Non-Tender, Normal, Normal Inspection Respiratory: Chest Non-Tender, Lungs Clear, No Accessory Muscle Use, No Respiratory Distress, Normal Breath Sounds Cardiovascular: No Edema, No JVD, No Murmur, No Gallop, Normal Peripheral Pulses, Regular Rate/Rhythm Breast Exam: Deferred Gastrointestinal: No Organomegaly, Non Tender, No Pulsatile Mass, Normal Bowel Sounds, Soft Genitalia: Deferred Pelvic: Deferred Rectal: Deferred Extremities: No calf tenderness, Normal capillary refill, Normal inspection, Normal range of motion, Non-tender, No pedal edema Musculoskeletal : Apperance: Normal Neurologic: Alert, correctional officer II-XII nml as Tested, No Motor Deficits, Normal Affect, Normal Mood, No Sensory Deficits Cerebellar Function: Normal Reflexes: Normal Skin: Dry, Normal Color, Warm Lymphatic: No Adenopathy Was a procedure done? Was a procedure done?: No Differential Dx Considerations may include: hypertensive emergency, inappropriate medication dosage, noncompliance, viral syndrome, electrolyte imbalance, among others X-Ray, Labs, Meds, VS Vital Signs Date Time Temp Pulse Resp B/P (MAP) Pulse Ox O2 Delivery O2 Flow Rate FiO2 12/27/24 23:30 168/81 12/27/24 23:16 87 16 98 Room Air* 0 21 12/27/24 23:10 98.1 87 16 168/81 (110) 98 98.1 12/27/24 21:07 98.6 110 22 194/119 99 98.6 Lab Test 12/27/24 21:43 Range/Units White Blood Count 8.6 4.4-10.8 10^3/uL Red Blood Count 4.67 4.0-5.20 10^6/uL Hemoglobin 9.3 L 12.2-16.2 g/dL Hematocrit 30.5 L 36.0-46.0 % Mean Corpuscular Volume 65.4 L 80.0-100.0 fL Mean Corpuscular Hemoglobin 19.9 L 28.0-32.0 pg Mean Corpuscular Hemoglobin Concent 30.4 L 32.0-36.0 g/dL Red Cell Distribution Width 18.4 H 11.8-14.3 % Platelet Count 344 140-450 10^3/uL Mean Platelet Volume 8.0 6.9-10.8 fL Neutrophils (%) (Auto) 66.8 37.0-80.0 % Lymphocytes (%) (Auto) 22.6 10.0-50.0 % Monocytes (%) (Auto) 7.1 0.0-12.0 % Eosinophils (%) (Auto) 2.8 0.0-7.0 % Basophils (%) (Auto) 0.7 0.0-2.0 % Neutrophils # (Auto) 5.7 1.6-8.6 10 ^3/uL Lymphocytes # (Auto) 1.9 0.4-5.4 10 ^3/uL Monocytes # (Auto) 0.6 0-1.3 10 ^3/uL Eosinophils # (Auto) 0.2 0-0.8 10 ^3/uL Basophils # (Auto) 0.1 0-0.2 10 ^3/uL Nucleated Red Blood Cells 0.0 % Sodium Level 139 136-145 mmol/L Potassium Level 4.2 3.5-5.1 mmol/L Chloride Level 105 98-107 mmol/L Carbon Dioxide Level 26 20-31 mmol/L Anion Gap 8 5-15 Blood Urea Nitrogen 8 L 9-23 mg/dL Creatinine 0.63 0.550-1.02 mg/dL Glomerular Filtration Rate Calc 111 >90 mL/min BUN/Creatinine Ratio 12.7 10.0-20.0 Serum Glucose 196 H 74-106 mg/dL Calcium Level 9.0 8.7-10.4 mg/dL Total Bilirubin 0.7 0.2-1.0 mg/dL Aspartate Amino Transferase (AST) 17 13-40 U/L Alanine Aminotransferase (ALT) 13 7-40 U/L Alkaline Phosphatase 110 46-116 U/L Troponin I High Sensitivity 4 </=34 ng/L Total Protein 7.7 5.7-8.2 g/dL Albumin 4.5 3.2-4.8 g/dL Current Medications Medications (Trade) Dose Ordered Sig/Cecily Route Start Time Stop Time Status Last Admin Lisinopril (Zestril Tablet) 20 mg ONCE ONCE PO 12/27/24 21:45 12/27/24 21:46 DC 12/27/24 23:30 Time of 1ST Reevaluation: 23:40 Reevaluation 1ST: Unchanged Patient Education/Counseling: Diagnosis, Treatment, Need For Follow Up Family Education/Counseling: Diagnosis, Treatment, Need For Follow Up SEPSIS Sepsis Screen Date sepsis recognized/suspect: Dec 27, 2024 Time Sepsis recognized/suspect: 2111 Recent Procedure: No On Antibiotic Therapy: No Respiratory Rate >20: No Heart Rate >90: No Temp<36 C (96.8 F) or >38.3 C: No SBP <90 or MAP <65 mmHG: No New Acute Mental Status Change: No Is the patient on CPAP, BIPAP,: No Physician Orders Electrocardigram (12/27/24 21:33) Vital Signs Date Time Temp Pulse Resp B/P (MAP) Pulse Ox O2 Delivery O2 Flow Rate FiO2 12/27/24 23:30 168/81 12/27/24 23:16 87 16 98 Room Air* 0 21 12/27/24 23:10 98.1 87 16 168/81 (110) 98 98.1 12/27/24 21:07 98.6 110 22 194/119 99 98.6 Laboratory Tests Test 12/27/24 21:43 White Blood Count 8.6 10^3/uL (4.4-10.8) Medications Medications Dose Ordered Sig/Cecily Route Start Time Stop Time Status Last Admin Dose Admin Lisinopril 20 mg ONCE ONCE PO 12/27/24 21:45 12/27/24 21:46 DC 12/27/24 23:30 Departure 1 Departure Time of Disposition: 01:40 Impression: Primary Impression: Elevated blood pressure reading Additional Impressions: Anemia, iron deficiency Diabetes type 2, uncontrolled Disposition: 01 HOME / SELF CARE / HOMELESS Condition: Stable Additional Instructions: Follow up with your primary physician Return to the Emergency Department for any worsening symptoms or concerns e-Prescriptions Azithromycin (Azithromycin) 500 Mg Tab 1 TAB PO DAILY for 5 Days, #5 TAB Prov: SOURAV WEI MD 12/27/24 Gentamicin Sulfate (Gentamicin Sulfate) 0.3 % Maria Elena 1 DROP EACHEYE QID for 5 Days, #5 ML Prov: SOURAV WEI MD 12/27/24 Vvuhugkm-Nqcwrmidt-Xp (Otic) (Cortisporin Otic Susp) [address] 3 DROP EACH EAR TID for 7 Days, #10 ML Prov: SOURAV WEI MD 12/27/24 Metformin Hydrochloride (Metformin Hcl) 1,000 Mg Tab 1 TAB PO BID, #180 TAB 1 Refill Prov: SOURAV WEI MD 12/27/24 Ferrous Sulfate (FERROUS SULFATE) 325 Mg Tb 1 TAB PO DAILY for 90 Days, #90 TAB 3 Refills Prov: SOURAV WEI MD 12/27/24 Amlodipine Besylate (Amlodipine Besylate) 5 Mg Tab 1 TAB PO DAILY, #90 TAB 1 Refill Prov: SOURAV EWI MD 12/27/24 Discharged With: Spouse Critical Care Note Critical Care Time?: No Stability Stability form required: No Heart Score Heart Score: Heart Score Response (Comments) Value History N/A 0 EKG N/A 0 Age N/A 0 Risk Factors N/A 0 Troponin N/A 0 Total 0 I personally scribed for SOURAV WEI MD ([email or web address]) on 12/27/24 at 23:56. Electronically submitted by Tam Richardson ([email or web address]). SOURAV WEI MD Dec 27, 2024 23:56
== END 2024-12-27 23:40 | disposition home or self-care (01) ==
LOC: ER 21:06
DX: D50.9 Iron deficiency anemia, unspecified (principal); I10 Essential (primary) hypertension; E11.65 Type 2 diabetes mellitus with hyperglycemia; Z79.84 Long term (current) use of oral hypoglycemic drugs; Z79.899 Other long term (current) drug therapy; Z98.51 Tubal ligation status; Z98.890 Other specified postprocedural states
CPT/HCPCS: 36415; 80053; 84484; 85025